=== PATIENT | female | born 1985 | race Caucasian/White ===

== ENCOUNTER 2021-10-26 01:29 | Emergency (ER) | payer OTHER ==
[~2021-10-26] VITALS: Ht 157.4 cm; Wt 81.6 kg
[~2021-10-26 01:29] MED LIST: ANAPROX DS550 MG PO; BUSPIRONE HCL7.5 MG PO; CEFTIN500 MG PO; CELEXA20 MG; CILOXAN 5 ML5 M1 OT; DOXYCYCLINE100 M3 PO; HYDROCODONE BIT1 T11 PO; MIRALAX17 GM/DOSE PO; NAPROXEN550 M1 PO; PREDNISONE20 M1 PO; PREDNISONE50 MG PO; PRILOSEC40 MG PO; PROPRANOLOL HCL20 MG PO; VICODIN ES 7501 TAB PO; ZITHROMAX Z PA250 MG PO; ZOFRAN4 MG PO
[2021-10-26] MEDS ORDERED: PREDNISONE10 MG PO (01:53)
== END 2021-10-26 01:57 | disposition home or self-care (01) ==
LOC: ED 01:29
DX: L25.9 Unspecified contact dermatitis, unspecified cause (principal); Z88.5 Allergy status to narcotic agent; Z79.899 Other long term (current) drug therapy; Z98.890 Other specified postprocedural states

== ENCOUNTER 2022-01-10 21:54 | Emergency (ER) | payer OTHER ==
[~2022-01-10] VITALS: Ht 157.4 cm; Wt 81.6 kg
[~2022-01-10 21:54] MED LIST changes: +PREDNISONE10 MG PO
[2022-01-10 23:49] LABS: BASO % 0.4 % (0.0-1.0); EOS # 0.1 10*3/uL (0.0-0.4); EOS % 0.8 % (1.0-4.0); HEMATOCRIT 46.8 % (37.0-47.0); LYMPH # 4.7 10*3/uL (1.3-4.4); MEAN CELL VOLUME 91.8 fl (81.0-99.0); MEAN CORPUSCULAR HGB CONC 33.8 g/dl (33.0-37.0); MEAN PLATELET VOLUME 9.8 fl (9.6-12.3); MONO # 0.5 10*3/uL (0.1-1.0); MONO % 5.8 % (3.0-9.0); NEUT # 3.8 10*3/uL (2.3-7.9); NEUT % 41.7 % (47.0-73.0); PLATELET COUNT AUTOMATED 227 10*3/uL (130-400); RED CELL DISTRI WIDTH 12.6 % (0-14.5); WHITE BLOOD COUNT 9.2 10*3/uL (4.8-10.8)
[2022-01-11 00:05] LABS: ALKALINE PHOSPHATASE 79 U/L (45-117); BUN 8 mg/dl (7-24); CHLORIDE 113 mmol/L (98-107); CREATININE 0.77 mg/dL (0.55-1.02); POTASSIUM 4.1 mmol/L (3.5-5.1); SGOT/AST 11 IU/L (3-35); SGPT/ALT 18 U/L (12-78); SODIUM 142 mmol/L (136-145); TOTAL PROTEIN 7.4 gm/dL (6.4-8.2)
== END 2022-01-11 00:06 | disposition home or self-care (01) ==
LOC: ED 21:54
PROVIDERS: Nurse Practitioner Family
DX: L27.0 Generalized skin eruption due to drugs and medicaments taken internally (principal); Z88.8 Allergy status to other drugs, medicaments and biological substances; Z98.890 Other specified postprocedural states; Z90.49 Acquired absence of other specified parts of digestive tract

== ENCOUNTER 2022-07-16 17:14 | Emergency (ER) | payer OTHER ==
[~2022-07-16 17:14] MED LIST changes: +METOPROLOL SUCC50 M1 PO; +XANAX1 MG PO
== END 2022-07-16 18:48 | disposition left against medical advice (07) ==
LOC: ED 17:14
DX: S59.902A Unspecified injury of left elbow, initial encounter (principal); Z88.5 Allergy status to narcotic agent; Z53.21 Procedure and treatment not carried out due to patient leaving prior to being seen by health care provider; X58.XXXA Exposure to other specified factors, initial encounter; Y93.89 Activity, other specified; Y92.89 Other specified places as the place of occurrence of the external cause; Y99.8 Other external cause status

== ENCOUNTER → 2022-10-22 | Day surgery (SDC) | payer OTHER ==
[~2022-10-22] VITALS: Ht 157.4 cm; Wt 72.6 kg
[~2022-10-22] MED LIST changes: +DEPO PROVER150 MG/M1 IM; +EFFEXOR XR37.5 M1 PO; +OCUFLOX 0.3% 5 M5 ML OT
[2022-10-22 11:10] VITALS: BP 118/74
[2022-10-22 11:50] VITALS: BP 95/57
[2022-10-22 12:05] VITALS: BP 94/56
[2022-10-22 12:20] VITALS: BP 96/62
== END ==
LOC: SDC 10-17 09:30
PROVIDERS: ATTEND Specialist
DX: H65.493 Other chronic nonsuppurative otitis media, bilateral (principal)

== ENCOUNTER → 2022-12-08 | Outpatient (CLI) | payer OTHER | END | disposition home or self-care (01) | LOC: CT 01:15 | PROVIDERS: ATTEND Specialist | DX: M27.40 Unspecified cyst of jaw (principal); J01.00 Acute maxillary sinusitis, unspecified ==

== ENCOUNTER 2023-01-17 10:14 | Emergency (ER) | payer OTHER ==
[~2023-01-17] VITALS: Ht 157.4 cm; Wt 70.8 kg
[2023-01-17] MEDS ORDERED: AMOX-CLAV 875-1 EACH PO (12:11)
== END 2023-01-17 12:12 | disposition home or self-care (01) ==
LOC: ED 10:14
DX: B34.9 Viral infection, unspecified (principal); J32.9 Chronic sinusitis, unspecified; F41.9 Anxiety disorder, unspecified; F32.A Depression, unspecified; Z88.5 Allergy status to narcotic agent; Z90.49 Acquired absence of other specified parts of digestive tract; Z98.890 Other specified postprocedural states; Z20.822 Contact with and (suspected) exposure to COVID-19

== ENCOUNTER 2024-12-20 21:42 | Emergency (ER) | payer OTHER ==
[~2024-12-20] VITALS: Ht 154.9 cm; Wt 90.7 kg
[~2024-12-20 21:42] MED LIST changes: +AMOX-CLAV 875-1 EACH PO
[2024-12-20] MEDS ORDERED: Bacitracin Zinc 14 GM TUBE T ONE (22:10)
[2024-12-20] MEDS ORDERED: Sulfamethoxazole/Trimethopri 1 TAB TAB PO ONE (22:10)
[2024-12-20] MEDS ORDERED: SEPTDS PO (22:23)
== END 2024-12-20 22:40 | disposition home or self-care (01) ==
LOC: ED 21:42
DX: L03.311 Cellulitis of abdominal wall (principal); Z98.890 Other specified postprocedural states; Z88.5 Allergy status to narcotic agent; Z79.899 Other long term (current) drug therapy

== ENCOUNTER 2025-03-02 22:49 | Emergency (ER) | payer OTHER ==
[~2025-03-02] VITALS: Ht 154.9 cm; Wt 88.5 kg
[~2025-03-02 22:49] MED LIST changes: +SEPTDS PO
[2025-03-02] MEDS ORDERED: ZITHROMAX250 MG PO (23:47)
[2025-03-02] MEDS ORDERED: PREDNISONE20 M1 PO (23:47)
== END 2025-03-02 23:55 | disposition home or self-care (01) ==
LOC: ED 22:49
DX: J40 Bronchitis, not specified as acute or chronic (principal); R00.0 Tachycardia, unspecified; Z88.5 Allergy status to narcotic agent; Z79.899 Other long term (current) drug therapy; Z98.890 Other specified postprocedural states